=== PATIENT | female | born 1990 | race Caucasian/White ===

== ENCOUNTER 2019-09-10 04:52 | Emergency (ER) | payer MEDICAID ==
[~2019-09-10] VITALS: Ht 157.5 cm; Wt 77.0 kg
[2019-09-10] MEDS ORDERED: ACETAMINOPHEN 500MG TABLET PO ONE (05:30)
[2019-09-10] MEDS ORDERED: DEXAMETHASONE 4MG TABLET PO ONE (05:30)
[2019-09-10] MEDS ORDERED: SODIUM CHLORIDE 0.9% 1,000 ML IV ONE (06:35)
[2019-09-10] MEDS ORDERED: KETOROLAC 30MG/ML VIAL IM ONE (06:45)
[2019-09-10] MEDS ORDERED: DIPHENHYDRAMINE 50MG/ML VIAL IV ONE (06:45)
[2019-09-10] MEDS ORDERED: KETOROLAC 15MG/ML VIAL IV ONE (06:45)
[2019-09-10] MEDS ORDERED: METOCLOPRAMIDE HCL 10MG/2ML VIAL IV ONE (06:45)
[2019-09-10] MEDS ORDERED: OSELTAMIVIR 75MG CAPSULE PO ONE (06:45)
[2019-09-10 08:43] VITALS: BP 137/82
== END 2019-09-10 08:46 | disposition home or self-care (01) ==
LOC: ER 04:52
DX: J10.1 Influenza due to other identified influenza virus with other respiratory manifestations (principal); Z87.01 Personal history of pneumonia (recurrent); Z90.49 Acquired absence of other specified parts of digestive tract; Z98.890 Other specified postprocedural states
CPT/HCPCS: 71045; 81025; 87070; 87430; 87804; 96374; 96375; 99284; J1200; J1885; J2765; J7030; J8540